=== PATIENT | female | born 1965 | race Caucasian/White ===

== ENCOUNTER 2022-03-31 13:36 | Emergency (ER) | payer BC ==
[2022-03-31] MEDS ORDERED: Meclizine 25 MG Tab PO ONE (14:13)
[2022-03-31 14:55] LABS: ANION GAP 9.3 meq/L (7-15); CHLORIDE,CL 106 mmol/L (98-107); SODIUM,NA 140 mmol/L (136-145)
[2022-03-31 14:57] LABS: ESTIMATED GFR 54 mL/min (>=60)
[2022-03-31] MEDS ORDERED: predniSONE 20 MG Tab PO ONE (16:07)
== END 2022-03-31 16:20 | disposition home or self-care (01) ==
LOC: LL.ED 13:36
DX: R42 Dizziness and giddiness (principal); Z88.0 Allergy status to penicillin; Z88.1 Allergy status to other antibiotic agents
CPT/HCPCS: 36415; 70450; 80053; 83735; 85025; 99284; A9270-GY; J7512

== ENCOUNTER 2022-06-28 10:57 | Emergency (ER) | payer BC ==
[2022-06-28] MEDS ORDERED: Ondansetron 4 MG Tab.DIS PO ONE (11:40)
[2022-06-28 11:48] LABS: CHLORIDE,CL 102 mmol/L (98-107); ESTIMATED GFR 69 mL/min (>=60); SODIUM,NA 138 mmol/L (136-145)
== END 2022-06-28 13:38 | disposition home or self-care (01) ==
LOC: LL.ED 10:57
DX: K52.9 Noninfective gastroenteritis and colitis, unspecified (principal); M06.9 Rheumatoid arthritis, unspecified; Z88.0 Allergy status to penicillin; Z88.1 Allergy status to other antibiotic agents
CPT/HCPCS: 36415; 74022; 80053; 81003; 83605; 85025; 99284; A9270-GY

== ENCOUNTER 2023-02-18 09:49 | Emergency (ER) | payer BC, MEDICAID ==
[2023-02-18] MEDS ORDERED: Sodium Chloride 0.9% 10 ML Syringe FLUSH PRN (09:57)
[2023-02-18 10:11] LABS: BASOPHILS ABSOLUTE AUTO 0.03 K/uL (0.00-0.20); BASOPHILS PERCENT AUTO 0.5 % (0.0-2.0); EOSINOPHILS ABSOLUTE AUTO 0.09 K/uL (0.00-0.50); EOSINOPHILS PERCENT AUTO 1.5 % (0.0-5.0); HEMATOCRIT 43.3 % (34.0-46.0); LYMPHOCYTES ABSOLUTE AUTO 2.21 K/uL (0.50-3.50); LYMPHOCYTES PERCENT AUTO 36.1 % (10.0-50.0); MEAN CORPUSCULAR HEMOGLOBIN 31.3 pg (28.2-33.3); MEAN CORPUSCULAR HGB CONC 32.3 g/dL (31.7-36.0); MEAN CORPUSCULAR VOLUME 96.9 fL (84.0-98.0); MONOCYTES ABSOLUTE AUTO 0.56 K/uL (0.00-1.00); MONOCYTES PERCENT AUTO 9.1 % (2.0-14.0); NEUTROPHILS ABSOLUTE AUTO 3.24 K/uL (1.40-7.00); NEUTROPHILS PERCENT AUTO 52.8 % (45.0-80.0); PLATELET COUNT,PLT 217 K/uL (150-350); RED BLOOD CELL COUNT 4.47 M/uL (3.77-5.09); WHITE BLOOD CELL COUNT,WBC 6.1 K/uL (4.0-10.2)
[2023-02-18 10:20] LABS: APPEARANCE,URINE CLEAR; BILIRUBIN,URINE NEGATIVE (NEGATIVE); COLOR,URINE YELLOW; GLUCOSE,URINE NEGATIVE (NEGATIVE); KETONES,URINE NEGATIVE (NEGATIVE); LEUKOCYTE ESTERASE,URINE NEGATIVE (NEGATIVE); NITRITE,URINE NEGATIVE (NEGATIVE); OCCULT BLOOD,URINE NEGATIVE (NEGATIVE); PH,URINE 6.5 (5.0-9.0); PROTEIN,URINE NEGATIVE (NEGATIVE); UROBILINOGEN,URINE 0.2 E.U./dL (0.2-1.0)
[2023-02-18 10:30] LABS: ALBUMIN 4.4 g/dL (3.4-5.0); ANION GAP 7.3 meq/L (7-15); BILIRUBIN TOTAL 0.5 mg/dL (0.2-1.0); CALCIUM 9.4 mg/dL (8.5-10.1); CARBON DIOXIDE,CO2 27.7 mmol/L (21.0-32.0); CREATININE 1.17 mg/dL (0.51-1.17); EST CRCL DRUG DOSING (CG) 41.37 mL/min; MAGNESIUM 1.8 mg/dL (1.8-2.4); POTASSIUM,K 4.2 mmol/L (3.5-5.1); PROTEIN TOTAL,TP 8.1 g/dL (6.4-8.2)
[2023-02-18] MEDS ORDERED: Take Home: traMADol 50 MG, 4 Tab Pack PO ONE (12:25)
[2023-02-18] MEDS ORDERED: Take Home: traMADol 50 MG, 4 Tab Pack ONE (12:29)
== END 2023-02-18 12:37 | disposition home or self-care (01) ==
LOC: LL.ED 09:49
DX: R10.9 Unspecified abdominal pain (principal); E03.9 Hypothyroidism, unspecified; Z88.0 Allergy status to penicillin; Z88.1 Allergy status to other antibiotic agents; Z79.899 Other long term (current) drug therapy
CPT/HCPCS: 36415; 74022; 80053; 81003; 83605; 83735; 84484; 85025; 99284; A9270-GY

== ENCOUNTER 2024-07-12 11:35 | Emergency (ER) | payer MEDICAID ==
[2024-07-12 12:02] LABS: BASOPHILS ABSOLUTE AUTO 0.03 K/uL (0.00-0.20); BASOPHILS PERCENT AUTO 0.6 % (0.0-2.0); EOSINOPHILS ABSOLUTE AUTO 0.47 K/uL (0.00-0.50); EOSINOPHILS PERCENT AUTO 9.9 % (0.0-5.0); HEMATOCRIT 42.5 % (34.0-46.0); IMMATURE GRAN ABSOLUTE AUTO 0.01 10^3/uL (0.00-0.50); IMMATURE GRAN PERCENT AUTO 0.2 % (0.0-5.0); LYMPHOCYTES ABSOLUTE AUTO 1.64 K/uL (0.50-3.50); LYMPHOCYTES PERCENT AUTO 34.5 % (10.0-50.0); MEAN CORPUSCULAR HEMOGLOBIN 30.2 pg (28.2-33.3); MEAN CORPUSCULAR HGB CONC 32.9 g/dL (31.7-36.0); MEAN CORPUSCULAR VOLUME 91.8 fL (84.0-98.0); MONOCYTES ABSOLUTE AUTO 0.58 K/uL (0.00-1.00); MONOCYTES PERCENT AUTO 12.2 % (2.0-14.0); NEUTROPHILS ABSOLUTE AUTO 2.02 K/uL (1.40-7.00); NEUTROPHILS PERCENT AUTO 42.6 % (45.0-80.0); PLATELET COUNT,PLT 223 K/uL (150-350); RED BLOOD CELL COUNT 4.63 M/uL (3.77-5.09); RED CELL DISTRIBUTION WIDTH 12.6 % (11.2-14.1); WHITE BLOOD CELL COUNT,WBC 4.8 K/uL (4.0-10.2)
[2024-07-12 12:26] LABS: ALBUMIN 3.9 g/dL (3.4-5.0); ANION GAP 10.6 meq/L (7-15); BILIRUBIN TOTAL 0.7 mg/dL (0.2-1.0); CALCIUM 9.5 mg/dL (8.5-10.1); CARBON DIOXIDE,CO2 24.4 mmol/L (21.0-32.0); CREATININE 0.9 mg/dL (0.51-1.17); EST CRCL DRUG DOSING (CG) 53.11 mL/min; POTASSIUM,K 4.3 mmol/L (3.5-5.1); PROTEIN TOTAL,TP 7.3 g/dL (6.4-8.2)
[2024-07-12 12:29] LABS: APPEARANCE,URINE CLEAR; BILIRUBIN,URINE NEGATIVE (NEGATIVE); COLOR,URINE YELLOW; GLUCOSE,URINE NEGATIVE (NEGATIVE); KETONES,URINE NEGATIVE (NEGATIVE); LEUKOCYTE ESTERASE,URINE TRACE (NEGATIVE); NITRITE,URINE NEGATIVE (NEGATIVE); OCCULT BLOOD,URINE NEGATIVE (NEGATIVE); PH,URINE 6.5 (5.0-9.0); PROTEIN,URINE NEGATIVE (NEGATIVE); UROBILINOGEN,URINE 0.2 E.U./dL (0.2-1.0)
[2024-07-12 12:39] LABS: RBC,URINE 0-5 /HPF; WBC,URINE 0-5 /HPF
[2024-07-12 12:40] LABS: BACTERIA,URINE NOT SEEN /HPF (NONE TO FEW); EPITHELIAL CELLS,URINE OCCASIONAL /LPF; MUCUS,URINE NOT SEEN /LPF (NEGATIVE)
[2024-07-12 12:43] LABS: CORONAVIRUS COVID-19 NAA NEGATIVE (NEGATIVE); INFLUENZA A NAA NEGATIVE (NEGATIVE); INFLUENZA B NAA NEGATIVE (NEGATIVE); RESPIRATORY SYNCYTIAL VIR NAA NEGATIVE (NEGATIVE)
== END 2024-07-12 13:00 | disposition home or self-care (01) ==
LOC: LL.ED 11:35
DX: R53.83 Other fatigue (principal); R25.1 Tremor, unspecified; E03.9 Hypothyroidism, unspecified; K21.9 Gastro-esophageal reflux disease without esophagitis; Z79.899 Other long term (current) drug therapy; Z90.49 Acquired absence of other specified parts of digestive tract; Z79.890 Hormone replacement therapy; Z88.0 Allergy status to penicillin; Z88.1 Allergy status to other antibiotic agents
CPT/HCPCS: 0241U; 36415; 80053; 81001; 84484; 85025; 93005; 99285; 93010; 99284